=== PATIENT | female | born 1975 | race Caucasian/White ===

== ENCOUNTER 2022-11-16 17:10 | Emergency (ER) | payer MEDICAID ==
[~2022-11-16] VITALS: Ht 160 cm; Wt 82.6 kg
[2022-11-16 17:17] VITALS: BP 150/91; PULSE 115; RESP 18; TEMP 98.1; O2SAT 99
--- NOTE | 2022-11-16 17:35 | NUR ---
hand over from AM shift. Pt is lying on bed awake, conscious, AAOx4. Still on RUQ Abd pain and lessen to 7/10 in pain scale. Kept monitored and needs attended.
--- NOTE | 2022-11-16 17:55 | NUR ---
PA on BS Assessing and talking to the patient.
[2022-11-16 18:07] LABS: BASOPHILS # (AUTO) 0.1 K/uL (0.00-0.22); BASOPHILS % (AUTO) 0.7 % (0.0-2.0); EOSINOPHILS # (AUTO) 0.2 K/uL (0-0.4); EOSINOPHILS % (AUTO) 2.5 % (0.0-4.0); HEMATOCRIT 41.6 % (36-48); LYMPHOCYTES # (AUTO) 2.4 K/uL (2.5-16.5); LYMPHOCYTES % (AUTO) 28.7 % (20.5-51.1); MEAN CORPUSCULAR HEMOGLOBIN 30 pg (27-31); MEAN CORPUSCULAR HGB CONC 34 g/dL (33-37); MONOCYTES # (AUTO) 0.6 K/uL (0.8-1.0); MONOCYTES % (AUTO) 7.3 % (1.7-9.3); NEUTROPHILS % (AUTO) 60.8 % (42.2-75.2); PLATELET COUNT (AUTO) 282 K/uL (140-450); RED BLOOD CELL COUNT(AUTO) 4.67 MIL/uL (4.20-5.40); RED CELL DISTRIBUTION WIDTH 12.6 % (11.6-13.7); WHITE BLOOD COUNT (AUTO) 8.3 K/uL (4.8-10.8)
[2022-11-16 18:14] LABS: ANION GAP 13.6 (8-16); CARBON DIOXIDE 26.5 mmol/L (21-32); CREATININE 0.6 mg/dL (0.6-1.3); POTASSIUM 4.1 mmol/L (3.5-5.1)
[2022-11-16] MEDS ORDERED: ONDANSETRON 4 MG/2 ML VIAL IVP ONE (18:45)
[2022-11-16] MEDS ORDERED: FAMOTIDINE 20 MG/2 ML VIAL IVP ONE (18:45)
[2022-11-16] MEDS ORDERED: KETOROLAC 30 MG/ML VIAL IVP ONE (18:45)
--- NOTE | 2022-11-16 19:06 | NUR ---
ANNIE TO LAB. US TECH AT BS.
[2022-11-16 19:11] LABS: ALBUMIN 3.6 g/dL (3.4-5.0); BILIRUBIN,DIRECT 0.1 mg/dL (0.0-0.3); TOTAL BILIRUBIN 0.5 mg/dL (0.0-1.0)
[2022-11-16 19:14] LABS: APPEARANCE,URINE CLEAR (CLEAR); BILIRUBIN,URINE NEGATIVE (NEGATIVE); BLOOD, URINE NEGATIVE (NEGATIVE); COLOR,URINE YELLOW (YELLOW); LEUKOCYTE ESTERASE ,URINE NEGATIVE (NEGATIVE); NITRITE, URINE NEGATIVE (NEGATIVE); UGLUCOSE NEGATIVE (NEGATIVE)
--- NOTE | 2022-11-16 20:22 | NUR ---
Pt is on 7/10 pain on reassessment after 1 hour of Toradol shot.
[2022-11-16 20:23] VITALS: BP 106/64; PULSE 79; RESP 18; TEMP 98; O2SAT 100
--- NOTE | 2022-11-16 20:23 | NUR ---
Patient discharged. Written and verbal after care instructions given and explained. Patient verbalized understanding. Ambulatory. All questions addressed prior to discharge. Advised to follow up with PMD.
--- NOTE | 2022-11-16 20:23 | NUR ---
Patient discharged with v/s stable. Written and verbal after care instructions given and explained. Patient verbalized understanding. Ambulatory with steady gait. All questions addressed prior to discharge. Advised to follow up with PMD.
== END 2022-11-16 20:23 | disposition home or self-care (01) ==
LOC: MED 17:10
DX: K80.50 Calculus of bile duct without cholangitis or cholecystitis without obstruction (principal)
CPT/HCPCS: 36415; 76705; 80048; 80076; 81003; 83690; 84702; 85025; 96374; 96375; 99285; J1885; J2405; J3490; Q0092

== ENCOUNTER 2023-12-12 09:51 | Emergency (ER) | payer MEDICAID, OTHER ==
[~2023-12-12] VITALS: Ht 157.5 cm; Wt 88.0 kg
[2023-12-12 09:54] VITALS: BP 143/91; PULSE 95; RESP 18; TEMP 98.3; O2SAT 98
[2023-12-12] MEDS ORDERED: FAMO-92 PO (12:07)
[2023-12-12 12:15] VITALS: BP 118/77; PULSE 81; RESP 18; TEMP 98.3; O2SAT 99
== END 2023-12-12 12:15 | disposition home or self-care (01) ==
LOC: MED 09:51
DX: J39.2 Other diseases of pharynx (principal); Z90.49 Acquired absence of other specified parts of digestive tract; Z79.899 Other long term (current) drug therapy
CPT/HCPCS: 76536; 93005; 99284; Q0092